=== PATIENT | female | born 1980 | race Two or more races ===

== ENCOUNTER 2023-10-12 04:19 | Day surgery (SDC) | payer OTHER ==
[2023-10-08 10:35] VITALS: BMI 31.8
[2023-10-12] MEDS ORDERED: LIDOCAINE HCL/PF 2% SDV 5ML VIAL ONE (10:21)
[2023-10-12] MEDS ORDERED: ONDANSETRON 4 MG/2 ML VIAL ONE (10:21)
[2023-10-12] MEDS ORDERED: DEXAMETHASONE SOD PHOSPHATE 4 MG/1 ML VIAL ONE (10:21)
[2023-10-12] MEDS ORDERED: PROPOFOL 40 ML ONE (10:23)
[2023-10-12] MEDS ORDERED: MIDAZOLAM HCL 2 MG/2 ML SINGLE DOSE VIAL ONE (10:24)
[2023-10-12] MEDS ORDERED: PROMETHAZINE HCL 25 MG/1 ML VIAL IVPB PRN (10:40)
[2023-10-12] MEDS ORDERED: ONDANSETRON 4 MG/2 ML VIAL IVPUSH PRN (10:40)
[2023-10-12] MEDS ORDERED: oxyCODONE HCL 5 MG TABLET PO PRN (10:40)
[2023-10-12] MEDS ORDERED: LIDOCAINE HCL 1%, 10 MG/ML (20ML VIAL) ONE ×2 (10:44→10:52)
[2023-10-12] MEDS ORDERED: LACTATED RINGERS SOLUTION 1,000 ML IV SCH (10:45)
[2023-10-12] MEDS ORDERED: LIDOCAINE HCL 2% JELLY 6 ML TP ONE (10:48)
[2023-10-12] MEDS: ceFAZolin SODIUM 1 GM VIAL IVPB ONE ×2 (11:08)
[2023-10-12] MEDS ORDERED: ACETAMINOPHEN INJECTION 100 ML IVPB ONE (11:28)
[2023-10-12] MEDS: LIDOCAINE HCL 1%, 10 MG/ML (20ML VIAL) NR ONE ×2 (11:52)
[2023-10-12 13:45] VITALS: RESP 18; TEMP 97.1
[2023-10-12 14:55] VITALS: BP 126/67; PULSE 68
== END 2023-10-12 14:45 | disposition home or self-care (01) ==
LOC: JASU-SURG 04:19
PROVIDERS: ATTEND Surgery
PROC: 0HBV0ZX Excision of Bilateral Breast, Open Approach, Diagnostic (ICD-10-PCS; principal; 2023-10-12 10:00)
DX: D24.2 Benign neoplasm of left breast (principal); D24.1 Benign neoplasm of right breast
CPT/HCPCS: 81025; 88307-TC; 94760; J0131